=== PATIENT | female | born 1960 | race Caucasian/White ===

== ENCOUNTER 2021-11-30 02:49 | Inpatient (IN) | payer OTHER ==
[~2021-11-30] VITALS: Ht 165.1 cm; Wt 68.0 kg
[2021-11-30 10:07] LABS: HEMOGLOBIN 11.3 gm/dl (12.3-15.3); RED BLOOD COUNT 3.86 M/UL (4.00-5.10); WHITE BLOOD COUNT 6.4 K/UL (4.5-11.0)
[2021-11-30] MEDS ORDERED: LEVOFLOXACIN500 MG PO (10:29)
[2021-11-30] MEDS ORDERED: PROTONIX40 MG PO (10:29)
[2021-11-30] MEDS ORDERED: PREDNISONE20 MG PO (10:29)
[2021-11-30] MEDS ORDERED: LISINOPRIL5 MG PO (10:30)
[2021-11-30] MEDS ORDERED: LATANOPROST2.5 ML OU (10:30)
[2021-11-30] MEDS ORDERED: DICLOFENAC SODI75 MG PO (10:31)
[2021-11-30] MEDS ORDERED: DORZOLAMIDE-TIM10 ML OU (10:34)
[2021-11-30] MEDS ORDERED: VITAMIN D325 MCG PO (10:35)
[2021-11-30 10:46] LABS: BUN/CREATININE RATIO 23 (0-10)
[2021-11-30] MEDS ORDERED: ASPIRIN EC81 MG PO (17:20)
[2021-11-30] MEDS ORDERED: ATORVASTATIN CA40 MG PO (17:22)
== END 2021-11-30 23:43 | disposition short-term general hospital (02) | DRG 282 ==
LOC: PROG CARE 02:49
PROVIDERS: Internal Medicine; ADMIT Internal Medicine
PROC: 4A023N7 Measurement of Cardiac Sampling and Pressure, Left Heart, Percutaneous Approach (ICD-10-PCS; principal; 2021-11-30)
PROC: B2111ZZ Fluoroscopy of Multiple Coronary Arteries using Low Osmolar Contrast (ICD-10-PCS; 2021-11-30)
DX: I21.4 Non-ST elevation (NSTEMI) myocardial infarction (principal); I10 Essential (primary) hypertension; Z20.822 Contact with and (suspected) exposure to COVID-19; Z98.51 Tubal ligation status; Z90.710 Acquired absence of both cervix and uterus; Z79.899 Other long term (current) drug therapy; Z87.891 Personal history of nicotine dependence; Z80.1 Family history of malignant neoplasm of trachea, bronchus and lung; Z82.49 Family history of ischemic heart disease and other diseases of the circulatory system; Z98.890 Other specified postprocedural states; Z80.8 Family history of malignant neoplasm of other organs or systems; Z79.52 Long term (current) use of systemic steroids; Z79.82 Long term (current) use of aspirin
CPT/HCPCS: ECHO; 80053; 80061; 82550; 82553; 84484; 85025; 85610; 85730; 93005; 93306; 99152; 99153; C1769; C1887; C1894; J1644; J2250; J3010; J7040; Q9967